=== PATIENT | male | born 1955 | race Caucasian/White ===

== ENCOUNTER 2020-07-30 00:53 | Emergency (ER) | payer MEDICAID ==
[~2020-07-30] VITALS: Ht 185.4 cm; Wt 113.4 kg
[2020-07-30 01:27] LABS: Basophils # (auto) 0.1 10 ^3/uL (0-0.2); Eosinophils # (auto) 0.1 10 ^3/uL (0-0.8); Eosinophils % (auto) 1.6 % (0.0-7.0); Hematocrit 44.5 % (41.0-53.0); Hemoglobin 15.3 g/dL (13.5-17.5); Lymphocytes # (auto) 2.1 10 ^3/uL (0.4-5.4); Lymphocytes % (auto) 33.1 % (10.0-50.0); Mean Corpuscular Hemoglobin 30.4 pg (28.0-32.0); Mean Corpuscular Hgb Conc. 34.4 g/dL (32.0-36.0); Mean Corpuscular Volume 88.5 fL (80.0-100.0); Monocytes # (auto) 0.6 10 ^3/uL (0-1.3); Monocytes % (auto) 8.9 % (0.0-12.0); Neutrophils # (auto) 3.5 10 ^3/uL (1.6-8.6); Neutrophils % (auto) 55.4 % (37.0-80.0); Nucleated Red Blood Cells % 0.1 %; Platelet Count (auto) 340 10^3/uL (140-450); Red Blood Cells 5.03 10^6/uL (4.5-5.90); Red Cell Distribution Width 13.9 % (11.8-14.3); White Blood Cell 6.4 10^3/uL (4.4-10.8)
[2020-07-30 01:37] LABS: Albumin 3.9 g/dL (3.4-5.0); BUN/Creatinine Ratio 15.2; Calcium 8.7 mg/dL (8.5-10.1); Potassium 3.3 mmol/L (3.5-5.1); Total Protein 7.5 g/dL (6.4-8.2)
[2020-07-30 05:00] VITALS: BP 151/81
== END 2020-07-30 05:24 | disposition home or self-care (01) ==
LOC: ER 01:01
DX: K40.20 Bilateral inguinal hernia, without obstruction or gangrene, not specified as recurrent (principal)
CPT/HCPCS: 36415; 74176; 80053; 83615; 85025

== ENCOUNTER 2023-06-25 09:28 | Inpatient (IN) | payer MEDICARE, MEDICAID ==
[~2023-06-25] VITALS: Ht 188 cm; Wt 101.1 kg
[2023-06-25 10:13] LABS: Basophils # (auto) 0.1 10 ^3/uL (0-0.2); Basophils % (auto) 0.6 % (0.0-2.0); Eosinophils # (auto) 0.1 10 ^3/uL (0-0.8); Eosinophils % (auto) 0.6 % (0.0-7.0); Hematocrit 49.4 % (41.0-53.0); Hemoglobin 16.4 g/dL (13.5-17.5); Lymphocytes # (auto) 1.7 10 ^3/uL (0.4-5.4); Lymphocytes % (auto) 18.3 % (10.0-50.0); Mean Corpuscular Hemoglobin 30.3 pg (28.0-32.0); Mean Corpuscular Hgb Conc. 33.3 g/dL (32.0-36.0); Monocytes # (auto) 0.8 10 ^3/uL (0-1.3); Monocytes % (auto) 9.1 % (0.0-12.0); Neutrophils # (auto) 6.6 10 ^3/uL (1.6-8.6); Neutrophils % (auto) 71.4 % (37.0-80.0); Nucleated Red Blood Cells % 0.2 %; Red Blood Cells 5.43 10^6/uL (4.5-5.90); Red Cell Distribution Width 13.7 % (11.8-14.3); White Blood Cell 9.2 10^3/uL (4.4-10.8)
[2023-06-25 10:16] LABS: Urine Bacteria NONE SEEN /hpf (None Seen); Urine Blood 3+ /uL (Negative); Urine Clarity CLOUDY (Clear); Urine Color Red (Yellow); Urine Protein, UAD 2+ (Negative); Urine Specific Gravity 1.015 (1.001-1.035); Urine Urobilinogen Normal (Negative); Urine WBC 512 /hpf (0 - 3); Urine pH 7.5 (5.0-8.0)
[2023-06-25 10:29] LABS: INR 1.02 (0.9-1.15); Partial Thromboplastin Time 29.6 SEC (24.5-34.5); Prothrombin Time 10.7 sec (9.3-11.8)
[2023-06-25 10:32] LABS: Alanine Aminotransferase 19 U/L (7-40); Albumin 4.6 g/dL (3.2-4.8); Alkaline Phosphatase 110 U/L (46-116); Anion Gap 6 (5-15); Aspartate Aminotransferase 19 U/L (13-40); BUN/Creatinine Ratio 7.5 (10.0-20.0); Bilirubin, Total 2.6 mg/dL (0.2-1.0); Blood Urea Nitrogen 7 mg/dL (9-23); Calcium 9.6 mg/dL (8.5-10.1); Carbon Dioxide 26 mmol/L (20-30); Chloride 106 mmol/L (98-107); Glucose 104 mg/dL (74-106); Potassium 3.7 mmol/L (3.5-5.1); Sodium 138 mmol/L (136-145)
[2023-06-25 10:33] LABS: Total Protein 7.6 g/dL (5.7-8.2)
[2023-06-25] MEDS ORDERED: CIPROFLOXACIN 400MG/200ML 200 ML IV ONE (11:00)
[2023-06-25] MEDS ORDERED: metroNIDAZOLE 500MG/100ML 100 ML IV ONE (11:00)
[2023-06-25] MEDS ORDERED: HYDROmorphone HCL 2 MG/ML VL/or syr IV PRN (11:15)
[2023-06-25] MEDS ORDERED: HYDROcodone-ACET 5/325MG TAB PO PRN (11:15)
[2023-06-25] MEDS ORDERED: ACETAMINOPHEN 325 MG TAB PO PRN (11:15)
[2023-06-25] MEDS ORDERED: DOCUSATE SOD 100 MG CAP PO PRN (11:15)
[2023-06-25] MEDS ORDERED: metroNIDAZOLE 500MG/100ML 100 ML IV SCH (11:15)
[2023-06-25] MEDS: SODIUM CHLOR 0.9% PF (SALINE LOCK) 10ML VIAL/SYR IV SCH ×2 (14:08→18:26)
[2023-06-25 16:00] VITALS: PULSE 80; RESP 16; O2SAT 98
[2023-06-25] MEDS: metroNIDAZOLE 500MG/100ML 100 ML IV SCH (18:26)
[2023-06-25 22:00] VITALS: BP 128/90; PULSE 79; RESP 16; TEMP 97.9; O2SAT 96
[2023-06-26] MEDS: metroNIDAZOLE 500MG/100ML 100 ML IV SCH ×3 (02:40→18:28)
[2023-06-26 05:00] VITALS: BP 116/73; PULSE 82; RESP 16; TEMP 98.4; O2SAT 98
[2023-06-26] MEDS: SODIUM CHLOR 0.9% PF (SALINE LOCK) 10ML VIAL/SYR IV SCH ×3 (05:50→22:00)
[2023-06-26 09:00] VITALS: BP 119/82; PULSE 81; RESP 20; TEMP 98.3; O2SAT 93
[2023-06-26] MEDS: cefTRIAXone 1GM/50ML D5W 50 ML IV SCH (11:13)
[2023-06-26 13:00] VITALS: BP 137/97; PULSE 70; RESP 20; TEMP 98.4; O2SAT 95
[2023-06-26 17:00] VITALS: BP 151/91; PULSE 78; RESP 18; TEMP 98.3; O2SAT 98
[2023-06-26 22:00] VITALS: BP 131/91; PULSE 77; RESP 18; TEMP 97.7; O2SAT 97
[2023-06-27] MEDS: metroNIDAZOLE 500MG/100ML 100 ML IV SCH ×3 (03:05→18:53)
[2023-06-27 05:00] VITALS: BP 152/96; PULSE 68; RESP 16; TEMP 97.6; O2SAT 96
[2023-06-27] MEDS: SODIUM CHLOR 0.9% PF (SALINE LOCK) 10ML VIAL/SYR IV SCH ×3 (05:50→21:21)
[2023-06-27] MEDS: ONDANSETRON HCL 4 MG/2 ML VIAL IV PRN (05:51)
[2023-06-27 09:00] VITALS: BP 155/99; PULSE 60; RESP 18; TEMP 98.1; O2SAT 96
[2023-06-27] MEDS: cefTRIAXone 1GM/50ML D5W 50 ML IV SCH (11:10)
[2023-06-27] MEDS ORDERED: cloNIDine HCL 0.1 MG TAB PO PRN (12:30)
[2023-06-27 13:00] VITALS: BP_SYST 140; BP_SYST 169; BP_DIAS 117; BP_DIAS 62; PULSE 100; PULSE 78; RESP 18; TEMP 98.1; TEMP 98.2; O2SAT 96; O2SAT 97
[2023-06-27 17:00] VITALS: BP 112/82; PULSE 74; RESP 18; TEMP 98.3; O2SAT 98
[2023-06-27 22:00] VITALS: BP_SYST 66; PULSE 71; RESP 17; TEMP 98.3; O2SAT 96
[2023-06-28] MEDS: metroNIDAZOLE 500MG/100ML 100 ML IV SCH ×2 (03:20→10:13)
[2023-06-28 05:00] VITALS: BP 115/82; PULSE 65; RESP 18; TEMP 98.2; O2SAT 98
[2023-06-28] MEDS: ONDANSETRON HCL 4 MG/2 ML VIAL IV PRN (05:50)
[2023-06-28] MEDS: SODIUM CHLOR 0.9% PF (SALINE LOCK) 10ML VIAL/SYR IV SCH ×2 (05:52→14:00)
[2023-06-28 09:00] VITALS: BP 125/85; PULSE 64; RESP 17; TEMP 97.6; O2SAT 96
[2023-06-28] MEDS: cefTRIAXone 1GM/50ML D5W 50 ML IV SCH (10:13)
[2023-06-28] MEDS ORDERED: BACDST PO (11:07)
[2023-06-28] MEDS ORDERED: METR-344 PO (11:07)
[2023-06-28 12:41] VITALS: BP 149/95; PULSE 75; RESP 17; TEMP 97.5; O2SAT 95
[2023-06-28 14:03] VITALS: BP 149/95; PULSE 75; TEMP 97.5
[2023-06-28 14:06] LABS: PSA Free 1.29 ng/mL
== END 2023-06-28 15:35 | disposition home or self-care (01) | DRG 872 ==
LOC: ER 09:28 → UNDOADMIN 11:14 → OVERFLOW 11:14 → EAST 17:41 → OVERFLOW 17:41 → EAST 19:01 → OVERFLOW 19:01
PROVIDERS: ADMIT Internal Medicine; ATTEND Family Medicine
DX: A41.01 Sepsis due to Methicillin susceptible Staphylococcus aureus (principal); N30.01 Acute cystitis with hematuria; K57.32 Diverticulitis of large intestine without perforation or abscess without bleeding; E86.0 Dehydration; N40.0 Benign prostatic hyperplasia without lower urinary tract symptoms; K43.9 Ventral hernia without obstruction or gangrene; Z80.42 Family history of malignant neoplasm of prostate; Z85.118 Personal history of other malignant neoplasm of bronchus and lung; Z87.891 Personal history of nicotine dependence; Z83.3 Family history of diabetes mellitus; Z80.1 Family history of malignant neoplasm of trachea, bronchus and lung
CPT/HCPCS: 36415; 74176; 76700; 80053; 81001; 83605; 84154; 85025; 85610; 85730; 87040; 87086; 87088; 87186; G0378; J2405; J3490

== ENCOUNTER → 2023-07-19 | Outpatient (CLI) | payer MEDICARE, MEDICAID ==
[~2023-07-19] MED LIST: BACDST PO; METR-344 PO
[2023-07-19 13:38] LABS: Urine Bacteria NONE SEEN /hpf (None Seen); Urine Blood Negative /uL (Negative); Urine Clarity Clear (Clear); Urine Color Yellow (Yellow); Urine Protein, UAD Negative (Negative); Urine Specific Gravity 1.021 (1.001-1.035); Urine Urobilinogen Normal (Negative); Urine WBC <1 /hpf (0 - 3); Urine pH 5.5 (5.0-8.0)
== END | disposition home or self-care (01) ==
LOC: LAB 13:20
PROVIDERS: ATTEND Urology
DX: N40.1 Benign prostatic hyperplasia with lower urinary tract symptoms (principal)
CPT/HCPCS: 81001; 87086

== ENCOUNTER 2023-07-28 10:54 | Emergency (ER) | payer MEDICARE, MEDICAID ==
[~2023-07-28] VITALS: Ht 188 cm; Wt 94.1 kg
[~2023-07-28 10:54] MED LIST changes: -LOSA25TA15 PO
[2023-07-28] MEDS ORDERED: LOSA25TA15 PO (11:50)
[2023-07-28 12:35] VITALS: BP 143/95; PULSE 69; RESP 18; O2SAT 95
== END 2023-07-28 12:38 | disposition home or self-care (01) ==
LOC: ER 10:54
DX: I16.0 Hypertensive urgency (principal); Z79.899 Other long term (current) drug therapy

== ENCOUNTER → 2023-07-28 | Outpatient (CLI) | payer MEDICARE, MEDICAID ==
[~2023-07-28] MED LIST changes: +LOSA25TA15 PO
== END | disposition home or self-care (01) ==
LOC: LAB 12:54
PROVIDERS: ATTEND Urology
DX: N40.1 Benign prostatic hyperplasia with lower urinary tract symptoms (principal)
CPT/HCPCS: 84153

== ENCOUNTER → 2023-08-18 | Outpatient (CLI) | payer MEDICARE, MEDICAID ==
[~2023-08-18] MED LIST changes: +LOSA25TA15 PO
[2023-08-18 07:44] LABS: Cholesterol 187 mg/dL (< 200); LDL Cholesterol 136 mg/dL (< 100); Triglycerides 65 mg/dL (< 150)
[2023-08-18 07:45] LABS: HDL Cholesterol 47 mg/dL (40-59)
== END | disposition home or self-care (01) ==
LOC: LAB 06:37
PROVIDERS: ATTEND Internal Medicine
DX: N40.1 Benign prostatic hyperplasia with lower urinary tract symptoms (principal); N39.0 Urinary tract infection, site not specified; Z79.899 Other long term (current) drug therapy
CPT/HCPCS: 36415; 80061; 83036; 84443

== ENCOUNTER → 2023-09-27 | Outpatient (CLI) | payer MEDICARE, MEDICAID ==
[~2023-09-27] MED LIST changes: +LOSA-533 PO; -LOSA25TA15 PO
[2023-09-27 07:07] LABS: Chloride 107 mmol/L (98-107); Potassium 3.9 mmol/L (3.5-5.1); Sodium 139 mmol/L (136-145)
[2023-09-27 07:08] LABS: Anion Gap 5 (5-15); Calcium 9.5 mg/dL (8.7-10.4); Carbon Dioxide 27 mmol/L (20-30)
[2023-09-27 07:13] LABS: BUN/Creatinine Ratio 13.8 (10.0-20.0); Blood Urea Nitrogen 13 mg/dL (9-23); Glucose 108 mg/dL (74-106)
[2023-09-27 07:37] LABS: Creatinine, Urine 202.26 mg/dL (30.0-125.0)
== END | disposition home or self-care (01) ==
LOC: LAB 06:39
PROVIDERS: ATTEND Internal Medicine
DX: Z12.11 Encounter for screening for malignant neoplasm of colon (principal); R73.03 Prediabetes; E78.5 Hyperlipidemia, unspecified
CPT/HCPCS: 36415; 80048; 82043; 82570

== ENCOUNTER 2023-10-04 06:37 | Day surgery (SDC) | payer MEDICARE, MEDICAID ==
[2023-09-30 08:45] LABS: Urine Bacteria None Seen /hpf (None Seen)
[2023-09-30 08:48] LABS: Basophils # (auto) 0 10 ^3/uL (0-0.2); Basophils % (auto) 0.7 % (0.0-2.0); Eosinophils # (auto) 0.1 10 ^3/uL (0-0.8); Hematocrit 45.6 % (41.0-53.0); Hemoglobin 15.4 g/dL (13.5-17.5); Lymphocytes # (auto) 1.5 10 ^3/uL (0.4-5.4); Lymphocytes % (auto) 32.1 % (10.0-50.0); Mean Corpuscular Hemoglobin 30.5 pg (28.0-32.0); Mean Corpuscular Hgb Conc. 33.9 g/dL (32.0-36.0); Monocytes # (auto) 0.5 10 ^3/uL (0-1.3); Neutrophils # (auto) 2.6 10 ^3/uL (1.6-8.6); Neutrophils % (auto) 54.2 % (37.0-80.0); Nucleated Red Blood Cells % 0.1 %; Red Blood Cells 5.07 10^6/uL (4.5-5.90); Red Cell Distribution Width 13.8 % (11.8-14.3); White Blood Cell 4.7 10^3/uL (4.4-10.8)
[2023-09-30 09:08] LABS: Partial Thromboplastin Time 27.1 SEC (24.5-34.5); Prothrombin Time 10.6 sec (9.3-11.8)
[2023-09-30 09:24] LABS: Alanine Aminotransferase 11 U/L (7-40); Albumin 4.5 g/dL (3.2-4.8); Alkaline Phosphatase 98 U/L (46-116); Anion Gap 5 (5-15); Aspartate Aminotransferase 18 U/L (13-40); BUN/Creatinine Ratio 12.2 (10.0-20.0); Blood Urea Nitrogen 12 mg/dL (9-23); Calcium 9.6 mg/dL (8.5-10.1); Carbon Dioxide 28 mmol/L (20-30); Chloride 107 mmol/L (98-107); Glucose 106 mg/dL (74-106); Potassium 4.3 mmol/L (3.5-5.1); Sodium 140 mmol/L (136-145)
[2023-09-30 09:25] LABS: Bilirubin, Total 1.8 mg/dL (0.2-1.0); Total Protein 7.3 g/dL (5.7-8.2)
[2023-09-30 09:31] LABS: Urine Blood TRACE /uL (Negative); Urine Clarity Clear (Clear); Urine Color Yellow (Yellow); Urine Mucus FEW (None Seen); Urine Protein, UAD Negative (Negative); Urine Specific Gravity 1.024 (1.001-1.035); Urine Urobilinogen Normal (Negative); Urine WBC 1 /hpf (0 - 3); Urine pH 5.5 (5.0-9.0)
[~2023-10-04] VITALS: Ht 188 cm; Wt 90.7 kg
[~2023-10-04 06:37] MED LIST changes: -BACDST PO; -METR-344 PO
[2023-10-04] MEDS ORDERED: PHENYLEPHRINE HCL 10 MG/ML VL IV ONE (08:55)
[2023-10-04] MEDS ORDERED: MIDAZOLAM HCL 2MG/2ML 2ml VIAL (1mg/ml) ONE (08:58)
[2023-10-04] MEDS ORDERED: fentaNYL CITRATE 100 MCG/2 ML VL ONE (08:58)
[2023-10-04] MEDS ORDERED: MEPERIDINE HCL (50 MG/ML) 1 ML VIAL ONE (08:58)
[2023-10-04] MEDS ORDERED: LIDOCAINE 2% JELLY 11ml (GLYDO) ONE (09:08)
[2023-10-04] MEDS ORDERED: ETOMIDATE (2MG/ML) 20ML VIAL IV ONE (09:25)
[2023-10-04] MEDS ORDERED: DexAMETHasone SOD PHOS 10MG/1ML VIAL INJ ONE (09:25)
[2023-10-04] MEDS ORDERED: ONDANSETRON HCL 4 MG/2 ML VIAL IV ONE (09:30)
[2023-10-04] MEDS ORDERED: LABETALOL HCL 5 MG/ML 4ML SYRINGE IV PRN (09:30)
[2023-10-04] MEDS ORDERED: HYDROmorphone HCL 2 MG/ML VL/or syr IV PRN (09:30)
[2023-10-04] MEDS ORDERED: MORPHINE SULFATE 4 MG/ML SYR/VIAL IV PRN (09:30)
[2023-10-04] MEDS ORDERED: MIDAZOLAM HCL 2MG/2ML 2ml VIAL (1mg/ml) IV PRN (09:30)
[2023-10-04] MEDS ORDERED: ePHEDrine SULFATE 50 MG/ML AMP IV PRN (09:30)
[2023-10-04 09:54] VITALS: TEMP 97.8; O2SAT 96
[2023-10-04 10:50] VITALS: BP 128/86; PULSE 79; RESP 13; O2SAT 99
== END 2023-10-04 11:00 | disposition home or self-care (01) ==
LOC: SUR 06:37
PROVIDERS: ATTEND Urology
DX: N40.1 Benign prostatic hyperplasia with lower urinary tract symptoms (principal); N32.89 Other specified disorders of bladder; N30.20 Other chronic cystitis without hematuria; I10 Essential (primary) hypertension; I25.10 Atherosclerotic heart disease of native coronary artery without angina pectoris; F32.A Depression, unspecified; F41.9 Anxiety disorder, unspecified; F11.90 Opioid use, unspecified, uncomplicated; F17.210 Nicotine dependence, cigarettes, uncomplicated; Z79.899 Other long term (current) drug therapy; Z98.890 Other specified postprocedural states
CPT/HCPCS: 36415; 52234; 80053; 81001; 85025; 85610; 85730; 87086; 88305; 88342; C9740; J1100; J2175; J2250; J2371; J3010; L8699

== ENCOUNTER → 2023-11-09 | Day surgery (SDC) | payer MEDICARE, MEDICAID ==
[2023-11-08 08:05] LABS: Basophils # (auto) 0 10 ^3/uL (0-0.2); Basophils % (auto) 0.8 % (0.0-2.0); Eosinophils # (auto) 0.1 10 ^3/uL (0-0.8); Eosinophils % (auto) 2.3 % (0.0-7.0); Hemoglobin 15.6 g/dL (13.5-17.5); Lymphocytes # (auto) 1.7 10 ^3/uL (0.4-5.4); Lymphocytes % (auto) 38.9 % (10.0-50.0); Mean Corpuscular Hemoglobin 31.6 pg (28.0-32.0); Mean Corpuscular Hgb Conc. 34.7 g/dL (32.0-36.0); Mean Corpuscular Volume 90.9 fL (80.0-100.0); Monocytes # (auto) 0.4 10 ^3/uL (0-1.3); Monocytes % (auto) 10.1 % (0.0-12.0); Neutrophils % (auto) 47.9 % (37.0-80.0); Nucleated Red Blood Cells % 0.1 %; Red Blood Cells 4.95 10^6/uL (4.5-5.90); Red Cell Distribution Width 13.7 % (11.8-14.3); White Blood Cell 4.3 10^3/uL (4.4-10.8)
[2023-11-08 08:17] LABS: Urine Bacteria FEW /hpf (None Seen); Urine Blood TRACE /uL (Negative); Urine Budding Yeast OCCASIONAL /hpf (None Seen); Urine Clarity Clear (Clear); Urine Color Yellow (Yellow); Urine Mucus FEW (None Seen); Urine Protein, UAD TRACE (Negative); Urine Specific Gravity 1.021 (1.001-1.035); Urine Urobilinogen Normal (Negative); Urine WBC 50 /hpf (0 - 3); Urine pH 6.5 (5.0-9.0)
[2023-11-08 08:19] LABS: INR 1.03 (0.9-1.15); Partial Thromboplastin Time 27.9 SEC (24.5-34.5); Prothrombin Time 10.9 sec (9.3-11.8)
[2023-11-08 08:31] LABS: Alanine Aminotransferase 11 U/L (7-40); Alkaline Phosphatase 95 U/L (46-116); Calcium 9.3 mg/dL (8.5-10.1); Carbon Dioxide 27 mmol/L (20-30); Chloride 110 mmol/L (98-107)
[2023-11-08 08:32] LABS: Albumin 4.4 g/dL (3.2-4.8); Anion Gap 5 (5-15); Aspartate Aminotransferase 11 U/L (13-40); BUN/Creatinine Ratio 10.9 (10.0-20.0); Bilirubin, Total 2.4 mg/dL (0.2-1.0); Blood Urea Nitrogen 10 mg/dL (9-23); Glucose 108 mg/dL (74-106); Potassium 3.7 mmol/L (3.5-5.1); Sodium 142 mmol/L (136-145)
[~2023-11-09] VITALS: Ht 188 cm; Wt 90.7 kg
[~2023-11-09] MED LIST changes: +ACE3T PO; +BUPIVACAINE HCL 50 ML ONE; +DexAMETHasone SOD PHOS 10MG/1ML VIAL INJ ONE; +HYDROmorphone HCL 2 MG/ML VL/or syr IV PRN; +KETAMINE 50mg/ML 1ml syringe ONE; +KETOROLAC TROMETH 30 MG/ML 1ML VIAL IV ONE; +LIDOCAINE 1% INJ PF 5ML AMP ONE; +LIDOCAINE 2% JELLY 11ml (GLYDO) ONE; +LIDOCAINE HCL 2% TOP JELLY 5ML TOP ONE; +LIDOCAINE W/ EPINEPHRINE 1% 20ML VIAL ONE; +MEPERIDINE HCL (50 MG/ML) 1 ML VIAL ONE; +METOCLOPRAMIDE HCL 5MG/ml INJ 2ml VIAL IV ONE; +MIDAZOLAM HCL 2MG/2ML 2ml VIAL (1mg/ml) ONE; +MORPHINE SULFATE INJ 2 MG/ml SYRG IV PRN; +PROPOFOL 10 MG/ML 20 ML IV ONE; +ROCURONIUM 10MG/ML 10ML VIAL IV ONE; +SODIUM CHLORIDE LOCK 10 ML ONE; +SUCCINYLCHOLINE CHLORIDE 20 MG/ML 10ML VIAL IV ONE; +ceFAZolin 2 GM/D5W50ml 50 ML IV ONE; +fentaNYL CITRATE 100 MCG/2 ML VL IV PRN; +fentaNYL CITRATE 100 MCG/2 ML VL ONE
[2023-11-09 08:29] VITALS: TEMP 97; O2SAT 98
[2023-11-09 09:40] VITALS: BP 152/100; PULSE 56; RESP 11; O2SAT 99
== END | disposition home or self-care (01) ==
LOC: SUR 06:06
PROVIDERS: ATTEND Surgery
DX: K40.91 Unilateral inguinal hernia, without obstruction or gangrene, recurrent (principal); I10 Essential (primary) hypertension; F12.90 Cannabis use, unspecified, uncomplicated; Z79.899 Other long term (current) drug therapy; Z98.890 Other specified postprocedural states
CPT/HCPCS: 36415; 49520; 80053; 81001; 85025; 85610; 85730; 86850; 86900; 86901; 88302; J0330; J0690; J1100; J2175; J2250; J2704; J3010; J3490

== ENCOUNTER → 2023-11-21 | Outpatient (CLI) | payer MEDICARE, MEDICAID ==
[~2023-11-21] MED LIST changes: -BUPIVACAINE HCL 50 ML ONE; -DexAMETHasone SOD PHOS 10MG/1ML VIAL INJ ONE; -HYDROmorphone HCL 2 MG/ML VL/or syr IV PRN; -KETAMINE 50mg/ML 1ml syringe ONE; -KETOROLAC TROMETH 30 MG/ML 1ML VIAL IV ONE; -LIDOCAINE 1% INJ PF 5ML AMP ONE; -LIDOCAINE 2% JELLY 11ml (GLYDO) ONE; -LIDOCAINE HCL 2% TOP JELLY 5ML TOP ONE; -LIDOCAINE W/ EPINEPHRINE 1% 20ML VIAL ONE; -MEPERIDINE HCL (50 MG/ML) 1 ML VIAL ONE; -METOCLOPRAMIDE HCL 5MG/ml INJ 2ml VIAL IV ONE; -MIDAZOLAM HCL 2MG/2ML 2ml VIAL (1mg/ml) ONE; -MORPHINE SULFATE INJ 2 MG/ml SYRG IV PRN; -PROPOFOL 10 MG/ML 20 ML IV ONE; -ROCURONIUM 10MG/ML 10ML VIAL IV ONE; -SODIUM CHLORIDE LOCK 10 ML ONE; -SUCCINYLCHOLINE CHLORIDE 20 MG/ML 10ML VIAL IV ONE; -ceFAZolin 2 GM/D5W50ml 50 ML IV ONE; -fentaNYL CITRATE 100 MCG/2 ML VL IV PRN; -fentaNYL CITRATE 100 MCG/2 ML VL ONE
[2023-11-21 07:48] LABS: Cholesterol 176 mg/dL (< 200); HDL Cholesterol 48 mg/dL (40-59)
[2023-11-21 07:49] LABS: Triglycerides 63 mg/dL (< 150)
[2023-11-21 07:50] LABS: LDL Cholesterol 121 mg/dL (< 100)
== END | disposition home or self-care (01) ==
LOC: LAB 06:53
PROVIDERS: ATTEND Internal Medicine
DX: R73.03 Prediabetes (principal); E78.5 Hyperlipidemia, unspecified
CPT/HCPCS: 36415; 80061; 83036

== ENCOUNTER → 2024-03-13 | Outpatient (CLI) | payer MEDICARE, MEDICAID ==
[2024-03-13 07:51] LABS: LDL Cholesterol 112 mg/dL (< 100); Triglycerides 81 mg/dL (< 150)
[2024-03-13 07:53] LABS: Cholesterol 174 mg/dL (< 200); HDL Cholesterol 52 mg/dL (40-59)
== END | disposition home or self-care (01) ==
LOC: LAB 07:07
PROVIDERS: ATTEND Internal Medicine
DX: E78.5 Hyperlipidemia, unspecified (principal); R73.03 Prediabetes; Z79.899 Other long term (current) drug therapy
CPT/HCPCS: 36415; 80061; 82306; 82607; 83036

== ENCOUNTER → 2024-05-08 | Outpatient (CLI) | payer MEDICARE, MEDICAID | END | disposition home or self-care (01) | LOC: LAB 09:52 | PROVIDERS: ATTEND Urology | DX: R97.20 Elevated prostate specific antigen [PSA] (principal) | CPT/HCPCS: 84153 ==

== ENCOUNTER → 2024-06-12 | Outpatient (CLI) | payer MEDICARE, MEDICAID ==
[2024-06-12 11:10] LABS: Basophils # (auto) 0 10 ^3/uL (0-0.2); Basophils % (auto) 0.7 % (0.0-2.0); Eosinophils # (auto) 0.1 10 ^3/uL (0-0.8); Eosinophils % (auto) 1.6 % (0.0-7.0); Hematocrit 46.3 % (41.0-53.0); Hemoglobin 15.5 g/dL (13.5-17.5); Lymphocytes # (auto) 1.2 10 ^3/uL (0.4-5.4); Lymphocytes % (auto) 29.8 % (10.0-50.0); Mean Corpuscular Hemoglobin 30.3 pg (28.0-32.0); Mean Corpuscular Hgb Conc. 33.5 g/dL (32.0-36.0); Mean Corpuscular Volume 90.4 fL (80.0-100.0); Monocytes # (auto) 0.4 10 ^3/uL (0-1.3); Monocytes % (auto) 10.2 % (0.0-12.0); Neutrophils # (auto) 2.4 10 ^3/uL (1.6-8.6); Neutrophils % (auto) 57.7 % (37.0-80.0); Nucleated Red Blood Cells % 0.2 %; Platelet Count (auto) 254 10^3/uL (140-450); Red Blood Cells 5.12 10^6/uL (4.5-5.90); Red Cell Distribution Width 13.9 % (11.8-14.3); White Blood Cell 4.2 10^3/uL (4.4-10.8)
[2024-06-12 11:42] LABS: Prostate Specific Antigen 2.66 ng/mL (0.0-4.0)
[2024-06-12 11:48] LABS: Triglycerides 54 mg/dL (< 150)
[2024-06-12 11:50] LABS: Cholesterol 170 mg/dL (< 200)
[2024-06-12 12:06] LABS: HDL Cholesterol 62 mg/dL (40-59); LDL Cholesterol 106 mg/dL (< 100)
== END | disposition home or self-care (01) ==
LOC: LAB 10:37
PROVIDERS: ATTEND Internal Medicine
DX: N40.0 Benign prostatic hyperplasia without lower urinary tract symptoms (principal); R73.03 Prediabetes; E72.59 Other disorders of glycine metabolism; Z79.899 Other long term (current) drug therapy
CPT/HCPCS: 36415; 80061; 82306; 82607; 84153; 85025

== ENCOUNTER 2024-06-26 16:25 | Emergency (ER) | payer MEDICARE, MEDICAID ==
[~2024-06-26] VITALS: Ht 188 cm; Wt 120.0 kg
[2024-06-26 16:35] VITALS: BP 145/105; PULSE 98; RESP 14; O2SAT 92
--- NOTE | 2024-06-26 17:19 | ED.PDOC ---
Back pain HPI HPI Comments 68y M who presents to the ED for chief complaint of back pain. Pt states she has been having back pain since earlier this AM after mechanical fall. Pt staes he slipped on ice while visiting his mothers home and states he fell on his back. Pt states he did not lose consciousness and denies hitting his head but states he fell on his lower back. Pt states he has since been having lower back and states he was trying to deal with the pain, and tried laying on his back on his bed and states he had some relief while laying on his L side but states he continued to be uncomfortable and came to the ED for further evaluation. Pt in the ED, rates the pain 10/10, constant, with no noted exacerbating or relieving factors. Pt states he is having associated pain and numbness to the bilateral hands. Pt states he has history of back pain from a workers comp injury in 1989. Pt otherwise denies any other symptoms at this time. Chief Complaint: Back Pain Time Seen by MD: 17:16 Primary Care Provider: MYKE Reviewed Notes: Nurses Notes, Medications Allergies: Coded Allergies: NO KNOWN ALLERGIES (Unverified , 07/30/20) Home Meds Active Scripts Gabapentin (Once-Daily) (Gabapentin) 300 Mg Tab, 300 MG PO Q6HP PRN for 10 Days, #40 TAB Prov:CORTEZ FAN MD 06/26/24 Acetaminophen W/ Codeine (Tylenol W/Cod #3) 1 Tab Tb, 1 TAB PO Q6HPRN PRN, #50 TAB Prov:CHRIS BEE NP 11/09/23 Losartan Potassium (Losartan Potassium) 25 Mg Tab, 1 TAB PO DAILY, #30 TAB 5 Refills Prov:PATRICIO ESQUIVEL MD 07/28/23 Information Source: Patient, Relative Mode of Arrival: Wheelchair Brought in by: daughter Timing: Hours Duration: Since onset Past Medical History Past Medical History (Other): chronic back pain Surgical History: Hernia Repair Family History Family History: Reviewed,noncontributory to illness Social History Smoker: Non-Smoker Alcohol: Denies ETOH Use Drugs: Marijuana Lives In: Home Constitutional: denies: chills, diaphoresis, fatigue, fever, malaise, sweats, weakness, others EENTM: denies: blurred vision, double vision, ear bleeding, ear discharge, ear drainage, ear pain, ear ringing, eye pain, eye redness, hearing loss, mouth pain, mouth swelling, nasal discharge, nose bleeding, nose congestion, nose pain, photophobia, tearing, throat pain, throat swelling, voice changes, others Respiratory: denies: cough, hemoptysis, orthopnea, SOB at rest, shortness of breath, SOB with excertion, stridor, wheezing, others Cardiovascular: denies: chest pain, dizzy spells, diaphoresis, Dyspnea on exertion, edema, irregular heart beat, left arm pain, lightheadedness, pa lpitations, PND, syncope, others Gastrointestinal: denies: abdomen distended, abdominal pain, blood streaked bowels, constipated, diarrhea, dysphagia, difficulty swallowing, hematemesis, melena, nausea, poor appetite, poor fluid intake, rectal bleeding, rectal pain, vomiting, others Genitourinary: denies: burning, dysuria, flank pain, frequency, hematuria, incontinence, penile discharge, penile sore, pain, testicle pain, testicle swelling, urgency, others Neurological: denies: dizziness, fainting, headache, left sided numbness, left sided weakness, numbness, paresthesia, pre-existing deficit, right sided numbness, right sided weakness, seizure, speech problems, tingling, tremors, weakness, others Musculoskeletal: reports: back pain; denies: gout, joint pain, joint swelling, muscle pain, muscle stiffness, neck pain, others Integumetry: denies: bruises, change in color, change in hair/nails, dryness, laceration, lesions, lumps, rash, wounds, others Allergic/Immunocompromised: denies: Difficulty Healing, Frequent Infections, Hives, Itching, others Hematologic/Lymphatic: denies: anemia, blood clots, easy bleeding, easy bruising, swollen glands, others Endocrine: denies: excessive hunger, excessive sweating, excessive thirst, excessive urination, flushing, intolerance to cold, intolerance to heat, unexplained weight gain, unexplained weight loss, others Psychiatric: denies: anxiety, bipolar disorder, depression, hopeless, panic disorder, schizophrenia, sleepless, suicidal, others All Other Systems: Reviewed and Negative Physical Exam General Appearance: Moderate Distress, Normal HEENT: Normal ENT Inspection, Pharynx Normal, TMs Normal Neck: Full Range of Motion, Non-Tender, Normal, Normal Inspection Respiratory: Chest Non-Tender, Lungs Clear, No Accessory Muscle Use, No Respiratory Distress, Normal Breath Sounds Cardiovascular: No Edema, No JVD, No Murmur, No Gallop, Normal Peripheral Pulses, Regular Rate/Rhythm Breast Exam: Deferred Gastrointestinal: No Organomegaly, Non Tender, No Pulsatile Mass, Normal Bowel Sounds, Soft Genitalia: Deferred Pelvic: Deferred Rectal: Deferred Extremities: No calf tenderness, Normal capillary refill, Normal inspection, Normal range of motion, Non-tender, No pedal edema Musculoskeletal : Location: Bilateral (tenderness lumbar paraspinal, no deformity, NVID) Apperance: Normal Neurologic: Alert, [place] II-XII nml as Tested, No Motor Deficits, Normal Affect, Normal Mood, No Sensory Deficits Cerebellar Function: Normal Reflexes: Normal Skin: Dry, Normal Color, Warm Lymphatic: No Adenopathy Was a procedure done? Was a procedure done?: No Back Pain Differential Dx Differential Diagnosis: Musculoskeletal Pain Other Differential Diagnosis fracture, dislocation, contusion, DJD, lumbar radiculopathy X-Ray, Labs, Meds, VS Vital Signs Date Time Temp Pulse Resp B/P (MAP) Pulse Ox O2 Delivery O2 Flow Rate FiO2 06/26/24 16:35 97.7 98 14 145/105 (118) 92 Current Medications Medications (Trade) Dose Ordered Sig/Elva Route Start Time Stop Time Status Last Admin Acetaminophen/ Hydrocodone Bitart ([place] 10/325MG Tab) 1 tab ONCE ONCE PO 06/26/24 17:00 06/26/24 17:01 DC 06/26/24 17:38 Ondansetron HCl (Zofran Po) 8 mg ONCE ONCE PO 06/26/24 17:00 06/26/24 17:01 DC 06/26/24 17:35 [place] [id number] Ph: [phone] DIAGNOSTIC IMAGING Diagnostic Imaging Report : [id number] Signed PATIENT: MARIA M CROOK ACCT: [id number] UNIT: [id number] : 1955 LOC: ER ROOM / BED: / AGE / SEX: 68 / M ADM STATUS: REG ER SERVICE [id number] ORDERING PHYSICIAN: EVELINA MCDANIEL DO PROCEDURE(s): ABPL - CT AB PEL WO CON-NO ORAL OR IV REASON: fall, low back pain ORDER NUMBER(s): [id number], ACCESSION NUMBER(s): [id number] Procedure: CT CT AB PEL WO CON-NO ORAL OR IV 06/26/2024 04:50 PM Indication: fall, low back pain Comparison Study: None available at time of dictation. Technique: Axial images were obtained and reformatted in coronal and sagittal planes. All CT scans at this medical facility are performed using dose modulation techniques as appropriate to a performed exam including the following: Automated exposure control was utilized; adjustment of the MA and/or KV according to patient size; and use of iterative reconstruction technique. CT Dose: CTDI volume is 11.44 mGy. Dose-length product is 622.08 mGy*cm FINDINGS: Lower Chest: Unremarkable. Hepatobiliary: Several stable hypodense hepatic lesions are seen which are most probably cysts Spleen: Unremarkable. Pancreas: Unremarkable. Adrenal Glands: Unremarkable. tract: The kidneys are normal in size bilaterally without hydronephrosis or nephrolithiasis. The urinary bladder is unremarkable. GI tract: The stomach is grossly normal in appearance. No evidence of small bowel obstruction. The large bowel is unremarkable. The appendix is not v isualized. No inflammatory change is noted in the right lower quadrant. Lymphatics: No mesenteric, retroperitoneal or periportal lymphadenopathy. Vasculature: Aorta is normal in caliber. Scattered calcified plaques are noted. Pelvic Organs: Prostate is moderately enlarged. Few subcentimeter densities are seen in the anterior aspect of the prostate that may be calcifications or brachytherapy seeds. Bones/soft tissues: Acute fracture of L1 with a horizontal lucent fracture in the anterior half and with depression of the superior endplates resulting in 30% loss of height. [address]able mild chronic anterior comp ression deformities of several lower thoracic vertebrae noted. Other: Stable nonspecific mild mesenteric fat stranding along the superior mesenteric axis noted. Small fat containing right inguinal hernia with interval improvement and suggestion of interval mesh herniorrhaphy. IMPRESSION: 1. Acute fracture of L1 likely burst fracture with 30% loss of height anteriorly and 2 mm retropulsion. ATED BY: AISHA SCHNEIDER MD DICTATED DATE/TIME: 06/26/241751 SIGNED BY: AISHA SCHNEIDER MD SIGNED DATE/TIME: 06/26/241751 CC: Time of 1ST Reevaluation: 17:45 Reevaluation 1ST: Unchanged Time of 2ND Reevaluation: 19:00 Reevaluation 2ND: Improved Patient Education/Counseling: Diagnosis, Treatment Family Education/Counseling: No Family Present Departure 1 Departure Time of Disposition: 19:00 Impression: Primary Impression: Closed burst fracture of lumbar vertebra Disposition: HOME / SELF CARE / HOMELESS Condition: Stable e-Prescriptions Gabapentin (Once-Daily) (Gabapentin) 300 Mg Tab 300 MG PO Q6HP PRN for 10 Days, #40 TAB Prov: CORTEZ FAN MD 06/26/24 Discharged With: Self Critical Care Note Critical Care Time?: No Stability Stability form required: No Heart Score Heart Score: Heart Score Response (Comments) Value History N/A 0 EKG N/A 0 Age N/A 0 Risk Factors N/A 0 Troponin N/A 0 Total 0 I personally scribed for CORTEZ FAN MD ([email or web address]) on 06/26/24 at 17:19. Electronically submitted by Quintin Reynolds ([email or web address]). I personally scribed for CORTEZ FAN MD ([email or web address]) on 06/26/24 at 18:03. Electronically submitted by Quintin Reynolds ([email or web address]). CORTEZ FAN MD Jun 26, 2024 17:19
[2024-06-26] MEDS: ONDANSETRON ODT 4 MG TAB PO ONE (17:35)
[2024-06-26] MEDS: HYDROcodone-ACET 10/325MG TAB PO ONE (17:38)
--- NOTE | 2024-06-26 17:54 | DVH ---
Procedure: CT CT AB PEL WO CON-NO ORAL OR IV 06/26/2024 04:50 PM Indication: fall, low back pain Comparison Study: None available at time of dictation. Technique: Axial images were obtained and reformatted in coronal and sagittal planes. All CT scans at this medical facility are performed using dose modulation techniques as appropriate t o a performed exam including the following: Automated exposure control was utilized; adjustment of th e MA and/or KV according to patient size; and use of iterative reconstruction technique. CT Dose: CTDI volume is 11.44 mGy. Dose-length product is 622.08 mGy*cm FINDINGS: Lower Chest: Unremarkable. Hepatobiliary: Several stable hypodense hepatic lesions are seen which are most probably cysts Spleen: Unremarkable. Pancreas: Unremarkable. Adrenal Glands: Unremarkable. tract: The kidneys are normal in size bilaterally without hydronephrosis or nephrolithiasis. The urinary bladder is unremarkable. GI tract: The stomach is grossly normal in appearance. No evidence of small bowel obstruction. The la rge bowel is unremarkable. The appendix is not visualized. No inflammatory change is noted in the ri ght lower quadrant. Lymphatics: No mesenteric, retroperitoneal or periportal lymphadenopathy. Vasculature: Aorta is normal in caliber. Scattered calcified plaques are noted. Pelvic Organs: Prostate is moderately enlarged. Few subcentimeter densities are seen in the anterior aspect of the prostate that may be calcifications or brachytherapy seeds. Bones/soft tissues: Acute fracture of L1 with a horizontal lucent fracture in the anterior half and w ith depression of the superior endplates resulting in 30% loss of height. [address] able mild chronic anterior compression deformities of several lower thoracic vertebrae noted. Other: Stable nonspecific mild mesenteric fat stranding along the superior mesenteric axis noted. Sma ll fat containing right inguinal hernia with interval improvement and suggestion of interval mesh her niorrhaphy. IMPRESSION: 1. Acute fracture of L1 likely burst fracture with 30% loss of height anteriorly and 2 mm retropulsio n.
[2024-06-26] MEDS ORDERED: GABA300T4 PO (18:54)
== END 2024-06-26 21:16 | disposition home or self-care (01) ==
LOC: ER 16:29
DX: S32.011A Stable burst fracture of first lumbar vertebra, initial encounter for closed fracture (principal); F12.90 Cannabis use, unspecified, uncomplicated; Z79.899 Other long term (current) drug therapy; Z98.890 Other specified postprocedural states; W00.2XXA Other fall from one level to another due to ice and snow, initial encounter; Y93.89 Activity, other specified; Y92.89 Other specified places as the place of occurrence of the external cause; Y99.8 Other external cause status
CPT/HCPCS: 74176; 99284; Q0162

== ENCOUNTER 2024-06-29 21:46 | Inpatient (IN) | payer MEDICARE, MEDICAID ==
[~2024-06-29] VITALS: Ht 188 cm; Wt 88.4 kg
[~2024-06-29 21:46] MED LIST changes: +GABA300T4 PO
--- NOTE | 2024-06-29 22:20 | ED.PDOC ---
Back pain HPI HPI Comments 68 y.o male presents to the ED for a chief complaint of mid lower back and pelvis pain s/p mechanical fall 3 days ago. Patient reports he tripped and fell onto his buttocks and was unable to get himself back up without assistance of his family. Patient was brought to the ED then, had images done and showed CT showed " Acute fracture of L1 likely burst fracture with 30% loss of height anteriorly and 2 mm retropulsion". Patient was discharged with Gabapentin and [place] but states he is unable to keep medication down due to new onset nausea and vomiting. Patient attempted to follow up with PCP but was told his pain is chronic and was unable to be seen then. He denies any head injuries or LOC during his fall. He also denies any numbness sensation to his lower extremities. Patient states the pain has been unrelenting and is unable to manage it at home. Time Seen by MD: 22:10 Primary Care Provider: MYKE Reviewed Notes: Nurses Notes, Medications, Allergies Allergies: Coded Allergies: NO KNOWN ALLERGIES (Unverified , 07/30/20) Home Meds Active Scripts Gabapentin (Once-Daily) (Gabapentin) 300 Mg Tab, 300 MG PO Q6HP PRN for 20 Days, #80 TAB Prov:CORTEZ FAN MD 06/26/24 Gabapentin (Once-Daily) (Gabapentin) 300 Mg Tab, 300 MG PO Q6HP PRN for 10 Days, #40 TAB Prov:CORTEZ FAN MD 06/26/24 Acetaminophen W/ Codeine (Tylenol W/Cod #3) 1 Tab Tb, 1 TAB PO Q6HPRN PRN, #50 TAB Prov:CHRIS BEE NP 11/09/23 Losartan Potassium (Losartan Potassium) 25 Mg Tab, 1 TAB PO DAILY, #30 TAB 5 Refills Prov:PATRICIO ESQUIVEL MD 07/28/23 Information Source: Patient Mode of Arrival: Wheelchair Timing: Days (3) Duration: Since onset Location of Back pain: (B) Lower back, (B) Lumbar Severity: Severe Quality: Sharp Onset: Fall Circumstance: Other History of: Other (recent fracture ) Modifying Factors: Nothing; No Movement, No Twisting, No Breathing, No Walking, No Other Associated signs and symptoms: Nausea, Vomiting Past Medical History PAST MEDICAL HISTORY: Denies Past Medical History (Other): Recent history of L1 burst fracture. Surgical History: Hernia Repair Family History Family History: Reviewed,noncontributory to illness Social History Smoker: Non-Smoker Alcohol: Denies ETOH Use Drugs: Marijuana Lives In: Home Constitutional: denies: chills, diaphoresis, fatigue, fever, malaise, sweats, weakness, others EENTM: denies: blurred vision, double vision, ear bleeding, ear discharge, ear drainage, ear pain, ear ringing, eye pain, eye redness, hearing loss, mouth pain, mouth swelling, nasal discharge, nose bleeding, nose congestion, nose pain, photophobia, tearing, throat pain, throat swelling, voice changes, others Respiratory: denies: cough, hemoptysis, orthopnea, SOB at rest, shortness of breath, SOB with excertion, stridor, wheezing, others Cardiovascular: denies: chest pain, dizzy spells, diaphoresis, Dyspnea on exertion, edema, irregular heart beat, left arm pain, lightheadedness, palpitations, PND, syncope, others Gastrointestinal: reports: nausea; denies: abdomen distended, abdominal pain, blood streaked bowels, constipated, diarrhea, dysphagia, difficulty swallowing, hematemesis, melena, poor appetite, poor fluid intake, rectal bleeding, rectal pain, vomiting, others Genitourinary: denies: burning, dysuria, flank pain, frequency, hematuria, incontinence, penile discharge, penile sore, pain, testicle pain, testicle swelling, urgency, others Neurological: denies: dizziness, fainting, headache, left sided numbness, left sided weakness, numbness, paresthesia, pre-existing deficit, right sided numbness, right sided weakness, seizure, speech problems, tingling, tremors, weakness, others Musculoskeletal: reports: back pain, others (pelvis pain ); denies: gout, joint pain, joint swelling, muscle pain, muscle stiffness, neck pain Hematologic/Lymphatic: denies: anemia, blood clots, easy bleeding, easy bruising, swollen glands, others Endocrine: denies: excessive hunger, excessive sweating, excessive thirst, excessive urination, flushing, intolerance to cold, intolerance to heat, unexplained weight gain, unexplained weight loss, others Psychiatric: denies: anxiety, bipolar disorder, depression, hopeless, panic disorder, schizophrenia, sleepless, suicidal, others All Other Systems: Reviewed and Negative Physical Exam General Appearance: Moderate Distress (Patient is a moderate distress due to low back pain concerns.) HEENT: Normal ENT Inspection, Pharynx Normal, TMs Normal Neck: Full Range of Motion, Non-Tender, Normal, Normal Inspection Respiratory: Chest Non-Tender, Lungs Clear, No Accessory Muscle Use, No Respiratory Distress, Normal Breath Sounds Cardiovascular: No Edema, No JVD, No Murmur, No Gallop, Normal Peripheral Pulses, Regular Rate/Rhythm Breast Exam: Deferred Gastrointestinal: No Organomegaly, Non Tender, No Pulsatile Mass, Normal Bowel Sounds, Soft Genitalia: Deferred Pelvic: Deferred Rectal: Deferred Extremities: Swelling, Tender Musculoskeletal : Location: Bilateral Extremity Location: Back (Diffuse bilateral lower lumbar tenderness to palpation throughout extending towards the coccyx region. [id number] hypertonicity appreciated. Distal neurovascularly intact. Patient denies any s addle paresthesia.) Apperance: Limited ROM, Tenderness: Moderate Neurologic: Alert, No Motor Deficits, Normal Affect, Normal Mood, No Sensory Deficits Cerebellar Function: Normal Reflexes: Normal Skin: Dry, Normal Color, Warm Lymphatic: No Adenopathy Was a procedure done? Was a procedure done?: No Back Pain Differential Dx Differential Diagnosis: Fracture, Musculoskeletal Pain, Other (Chronic low back pain) X-Ray, Labs, Meds, VS Vital Signs Date Time Temp Pulse Resp B/P (MAP) Pulse Ox O2 Delivery O2 Flow Rate FiO2 06/29/24 22:08 98.3 87 20 154/99 (117) 98 Lab Test 06/29/24 22:25 Range/Units White Blood Count 7.3 4.4-10.8 10^3/uL Red Blood Count 5.36 4.5-5.90 10^6/uL Hemoglobin 16.4 13.5-17.5 g/dL Hematocrit 47.7 41.0-53.0 % Mean Corpuscular Volume 89.0 80.0-100.0 fL Mean Corpuscular Hemoglobin 30.7 28.0-32.0 pg Mean Corpuscular Hemoglobin Concent 34.5 32.0-36.0 g/dL Red Cell Distribution Width 13.7 11.8-14.3 % Platelet Count 275 140-450 10^3/uL Mean Platelet Volume 7.6 6.9-10.8 fL Neutrophils (%) (Auto) 74.1 37.0-80.0 % Lymphocytes (%) (Auto) 14.9 10.0-50.0 % Monocytes (%) (Auto) 10.5 0.0-12.0 % Eosinophils (%) (Auto) 0.2 0.0-7.0 % Basophils (%) (Auto) 0.3 0.0-2.0 % Neutrophils # (Auto) 5.4 1.6-8.6 10 ^3/uL Lymphocytes # (Auto) 1.1 0.4-5.4 10 ^3/uL Monocytes # (Auto) 0.8 0-1.3 10 ^3/uL Eosinophils # (Auto) 0 0-0.8 10 ^3/uL Basophils # (Auto) 0 0-0.2 10 ^3/uL Nucleated Red Blood Cells 0.1 % Sodium Level 133 L 136-145 mmol/L Potassium Level 3.6 3.5-5.1 mmol/L Chloride Level 101 98-107 mmol/L Carbon Dioxide Level 21 20-31 mmol/L Anion Gap 11 5-15 Blood Urea Nitrogen 15 9-23 mg/dL Creatinine 0.83 0.700-1.30 mg/dL Glomerular Filtration Rate Calc 95 >90 mL/min BUN/Creatinine Ratio 18.1 10.0-20.0 Serum Glucose 122 H 74-106 mg/dL Calcium Level 9.8 8.7-10.4 mg/dL X-Ray, Labs, Meds, VS Comment All studies performed the ED were evaluated by me personally. Laboratories were unremarkable for any systemic process. This patient's pain is unmanageable at home. Patient will be admitted for a possible MRI in the morning for continued evaluation of his significant L1 burst fracture and may require a transfer to a half-way facility for rehab and pain assistance. Time of 1ST Reevaluation: 23:35 Reevaluation 1ST: Improved Consultation: PCP Patient Education/Counseling: Diagnosis, Treatment, Prognosis Family Education/Counseling: Diagnosis, Treatment, No Family Present Departure 1 Departure Time of Disposition: 23:35 Impression: Primary Impression: Closed burst fracture of lumbar vertebra Additional Impression: Intractable back pain Disposition: ADMITTED INPATIENT Condition: Fair Discharged With: Self Critical Care Note Critical Care Time?: No Stability Stability form required: No I personally scribed for HUMERA VALDES PAC ([email or web address]) on 06/29/24 at 22:20. Electronically submitted by Francisca Hull ([facility]). HUMERA VALDES PAC Jun 29, 2024 22:20
[2024-06-29 22:42] LABS: Basophils # (auto) 0 10 ^3/uL (0-0.2); Basophils % (auto) 0.3 % (0.0-2.0); Eosinophils # (auto) 0 10 ^3/uL (0-0.8); Eosinophils % (auto) 0.2 % (0.0-7.0); Hematocrit 47.7 % (41.0-53.0); Hemoglobin 16.4 g/dL (13.5-17.5); Lymphocytes # (auto) 1.1 10 ^3/uL (0.4-5.4); Lymphocytes % (auto) 14.9 % (10.0-50.0); Mean Corpuscular Hemoglobin 30.7 pg (28.0-32.0); Mean Corpuscular Hgb Conc. 34.5 g/dL (32.0-36.0); Monocytes # (auto) 0.8 10 ^3/uL (0-1.3); Monocytes % (auto) 10.5 % (0.0-12.0); Neutrophils # (auto) 5.4 10 ^3/uL (1.6-8.6); Neutrophils % (auto) 74.1 % (37.0-80.0); Nucleated Red Blood Cells % 0.1 %; Platelet Count (auto) 275 10^3/uL (140-450); Red Blood Cells 5.36 10^6/uL (4.5-5.90); Red Cell Distribution Width 13.7 % (11.8-14.3); White Blood Cell 7.3 10^3/uL (4.4-10.8)
[2024-06-29 22:50] LABS: Chloride 101 mmol/L (98-107); Potassium 3.6 mmol/L (3.5-5.1)
[2024-06-29 22:51] LABS: Anion Gap 11 (5-15); Calcium 9.8 mg/dL (8.7-10.4); Carbon Dioxide 21 mmol/L (20-31)
[2024-06-29 22:56] LABS: BUN/Creatinine Ratio 18.1 (10.0-20.0); Blood Urea Nitrogen 15 mg/dL (9-23)
[2024-06-29 22:57] LABS: Glucose 122 mg/dL (74-106); Sodium 133 mmol/L (136-145)
[2024-06-30] VITALS (7 sets, daily range): BP systolic 118–164; BP diastolic 77–105; PULSE 78–88; RESP 16–20; TEMP 97.7–98.8; O2SAT 94–98
[2024-06-30] MEDS: HYDROmorphone HCL 2 MG/ML VL/or syr IM ONE (01:12)
--- NOTE | 2024-06-30 01:36 | DVHHPRES ---
History of Present Illness Resident Creating Document: ABY BUI RESIDENT Reason for Visit: Lower back pain History of Present Illness This is a 68-year-old male who presents to the ED with chief complain of lower back pain. He has a past medical history relevant for hypertension. He denies any smoking, alcohol or drug abuse. He has a past medical history relevant for UroLift, hernia repair, bladder mass removal. Patient states that she was hospitalized recently a couple days ago due to a fall that he had in which he tripped and fell onto his buttocks, he was unable to get himself back up without assistance. A CT was performed which revealed acute fracture of L1, patient was discharged home with gabapentin and Glady, however, he states having significant nausea and vomiting and he is unable to take any p.o. meds. Patient currently states having severe lower back pain, he stated that it burning like sensation, she 10 down from his lower back to the sides of his buttocks, he has also unable to lift up both of his legs due to significant pain, he states having numbness and tingling sensation in the lower back area. In the ED patient received Dilaudid, he will be admitted for further investigation and management. Cardiovascular: HTN Smoke: No ALCOHOL: none Drugs: None Review of Systems Constitutional: Yes: Chills; No: Fever, Sweats, Weakness, Malaise, Other Eyes: No: Pain, Vision change, Conjunctivae inflammation, Eyelid inflammation, Other, Redness ENT: No: Ear pain, Ear discharge, Nose pain, Nose discharge, Nose congestion, Mouth pain, Mouth swelling, Throat pain, Throat swelling, Other Respiratory: No: Cough, Dry, Shortness of breath, SOB with excertion, Wheezing, Hemoptysis, Pleuritic Pain, Sputum, Wheezing, Other Cardiovascular: No: Chest Pain, Palpitations, Orthopnea, Paroxysmal Noc. Dyspnea, Edema, Lt Headedness, Other Gastrointestinal: No: Nausea, Vomiting, Abdominal Pain, Diarrhea, Constipation, Melena, Hematochezia, Other Genitourinary: No Dysuria, No Frequency, No Incontinence, No Hematuria, No Retention, No Other Musculoskeletal: back pain; No: other, neck pain, shoulder pain, arm pain, hand pain, leg pain, foot pain Skin: No: Rash, Lesions, Jaundice, Bruising, Other Neurological: No: Weakness, Numbness, Incoordination, Change in speech, Confusion, Seizures, Other Allergies: Coded Allergies: NO KNOWN ALLERGIES (Unverified , 07/30/20) Medications Current Medications Medications Dose Ordered Sig/Elva Route Start Time Stop Time Status Last Admin Dose Admin Morphine Sulfate 2 mg Q4HPRN PRN IV 06/30/24 01:00 Acetaminophen/ Hydrocodone Bitart 1 tab Q4HP PRN PO 06/30/24 01:00 Ondansetron HCl 4 mg Q4HPRN PRN IV 06/30/24 01:00 Losartan Potassium 25 mg DAILY PO 06/30/24 10:00 Exam Vital Signs Vital Signs Date Time Temp Pulse Resp B/P (MAP) Pulse Ox O2 Delivery O2 Flow Rate FiO2 06/30/24 01:12 90 18 136/88 06/30/24 01:06 Room Air* 0 21 06/30/24 01:05 98.0 98 98.0 General Appearance: Alert, Oriented X3, Cooperative, mild distress HEENT: Atraumatic, PERRLA, EOMI, Mucous membr. moist/pink Respiratory: Clear to auscultation, Normal air movement Cardiovascular: Regular rate, Normal S1, Normal S2, No murmurs Abdominal: Normal bowel sounds, Soft, No tenderness, No hepatospenomegaly Extremities: No clubbing, No cyanosis, No edema, Normal pulses Skin: No rashes, No breakdown, No significant lesion Neuro: Normal speech, Strength at 5/5 X4 ext, Normal tone, Sensation intact, Cranial nerves 3-12 NL Psych/Mental Status: Mental status NL, Mood NL Labs/Xrays Labs Test 06/29/24 22:25 Range/Units White Blood Count 7.3 4.4-10.8 10^3/uL Red Blood Count 5.36 4.5-5.90 10^6/uL Hemoglobin 16.4 13.5-17.5 g/dL Hematocrit 47.7 41.0-53.0 % Mean Corpuscular Volume 89.0 80.0-100.0 fL Mean Corpuscular Hemoglobin 30.7 28.0-32.0 pg Mean Corpuscular Hemoglobin Concent 34.5 32.0-36.0 g/dL Red Cell Distribution Width 13.7 11.8-14.3 % Platelet Count 275 140-450 10^3/uL Mean Platelet Volume 7.6 6.9-10.8 fL Neutrophils (%) (Auto) 74.1 37.0-80.0 % Lymphocytes (%) (Auto) 14.9 10.0-50.0 % Monocytes (%) (Auto) 10.5 0.0-12.0 % Eosinophils (%) (Auto) 0.2 0.0-7.0 % Basophils (%) (Auto) 0.3 0.0-2.0 % Neutrophils # (Auto) 5.4 1.6-8.6 10 ^3/uL Lymphocytes # (Auto) 1.1 0.4-5.4 10 ^3/uL Monocytes # (Auto) 0.8 0-1.3 10 ^3/uL Eosinophils # (Auto) 0 0-0.8 10 ^3/uL Basophils # (Auto) 0 0-0.2 10 ^3/uL Nucleated Red Blood Cells 0.1 % Sodium Level 133 L 136-145 mmol/L Potassium Level 3.6 3.5-5.1 mmol/L Chloride Level 101 98-107 mmol/L Carbon Dioxide Level 21 20-31 mmol/L Anion Gap 11 5-15 Blood Urea Nitrogen 15 9-23 mg/dL Creatinine 0.83 0.700-1.30 mg/dL Glomerular Filtration Rate Calc 95 >90 mL/min BUN/Creatinine Ratio 18.1 10.0-20.0 Serum Glucose 122 H 74-106 mg/dL Calcium Level 9.8 8.7-10.4 mg/dL Assessment/Plan Assessment/Plan # intractable Lower back pain due to acute fracture of L1, radiculopathy Reviewed previous CT: burst fracture with 30% loss of height anteriorly and 2 mm retropulsion. Ordered MRI of lower back Pain management p.r.n. Zofran IV p.r.n. Full liquid diet Ordered head CT, RPR Admit to med surge Order a.m. labs ordered PT #Hypertension, uncontrolled #Nonadherent Losartan 25 mg p.o. q.d. Counseled on lifestyle modifications #Cannabis dependence Counseled on cessation Goals of care were discussed for 30 minutes. Full code Case was discussed with Dr. Julian Plan discussed with: Patient My Orders Orders - ABY BUI RESIDENT Procedure Category Date Status Time Admit ADMIT 06/30/24 Transmitted 00:58 Notify Of Changes MAHAD 06/30/24 In Process From Base 00:58 Complete Blood Count LAB 06/30/24 Logged 04:00 Basic Metabolic Panel LAB 06/30/24 Logged 04:00 Apply Ice To Affected MAHAD 06/30/24 In Process Area 01:00 Morphine Sulfate PHA 06/30/24 In Process Injection 01:00 Hydrocodone-Acet PHA 06/30/24 In Process 10/325mg Tab (Glady 01:00 Drug Screen LAB 06/30/24 Logged 01:[address] 06/30/24 Logged 01:00 Lumbar Spine Wo MRI 06/30/24 Logged Contrast 01:00 Full Liq Diet DIET 06/30/24 Transmitted Breakfast Ondansetron Hcl PHA 06/30/24 In Process (Zofran) 01:00 Hepatic Panel LAB 06/30/24 Logged 04:00 RPR LAB 06/30/24 Logged 04:00 Losartan Tablet PHA 06/30/24 In Process (Cozaar Tablet) 10:00 ABY BUI RESIDENT Jun 30, 2024 01:36
[2024-06-30 03:12] LABS: Basophils # (auto) 0 10 ^3/uL (0-0.2); Basophils % (auto) 0.3 % (0.0-2.0); Eosinophils # (auto) 0 10 ^3/uL (0-0.8); Eosinophils % (auto) 0.3 % (0.0-7.0); Hematocrit 46.3 % (41.0-53.0); Hemoglobin 16.1 g/dL (13.5-17.5); Lymphocytes # (auto) 1.3 10 ^3/uL (0.4-5.4); Lymphocytes % (auto) 19.9 % (10.0-50.0); Mean Corpuscular Hemoglobin 30.9 pg (28.0-32.0); Mean Corpuscular Hgb Conc. 34.7 g/dL (32.0-36.0); Mean Corpuscular Volume 89.2 fL (80.0-100.0); Monocytes # (auto) 0.8 10 ^3/uL (0-1.3); Neutrophils # (auto) 4.5 10 ^3/uL (1.6-8.6); Neutrophils % (auto) 67.5 % (37.0-80.0); Nucleated Red Blood Cells % 0.1 %; Platelet Count (auto) 281 10^3/uL (140-450); Red Blood Cells 5.19 10^6/uL (4.5-5.90); Red Cell Distribution Width 13.4 % (11.8-14.3); White Blood Cell 6.6 10^3/uL (4.4-10.8)
[2024-06-30 03:25] LABS: Chloride 101 mmol/L (98-107); Potassium 3.5 mmol/L (3.5-5.1)
[2024-06-30 03:26] LABS: Anion Gap 11 (5-15); Carbon Dioxide 22 mmol/L (20-31)
[2024-06-30 03:31] LABS: BUN/Creatinine Ratio 17.1 (10.0-20.0); Blood Urea Nitrogen 14 mg/dL (9-23)
[2024-06-30 03:39] LABS: Albumin 4.5 g/dL (3.2-4.8); Total Protein 7.3 g/dL (5.7-8.2)
[2024-06-30 03:42] LABS: Glucose 116 mg/dL (74-106); Sodium 134 mmol/L (136-145)
[2024-06-30 03:46] LABS: Bilirubin, Total 4.2 mg/dL (0.2-1.0)
[2024-06-30 04:03] LABS: Bilirubin, Direct 0.4 mg/dL (<0.3)
--- NOTE | 2024-06-30 04:16 | DVH ---
EXAM: CT HEAD WITHOUT CONTRAST HISTORY: s/p fall COMPARISON: None TECHNIQUE: Noncontrast axial CT images of the head were performed. Sagittal and coronal reformatted images were obtained. This CT exam was performed using 1 or more of the following dose reduction techniques: Au tomated exposure control, adjustment of the mA and/or kv according to patient size, or the use of ite rative reconstruction techniques. Radiation Dose : Head: CT Dose: CTDI volume is 56.36 mGy. Dose-length product is 998.01 mGy*cm FINDINGS: No intracranial hemorrhage, mass, midline shift, hydrocephalus, or evidence of acute large vessel inf arct. There is mild mucosal thickening of the left maxillary sinus. There is fluid and sclerosis in the caudal aspect of the right mastoid air cells. The left mastoid air cells and bilateral middle ear spaces are clear. No cranial fracture or scalp edema. There is a dental cavity involving the single remaining left maxillary tooth (image 38, series 602). IMPRESSION: 1. No acute intracranial process. 2. Mild left maxillary sinus disease. 3. Sclerosis of the caudal aspect of the right mastoid air cells which may be due to chronic mastoidi tis.
[2024-06-30] MEDS: ONDANSETRON HCL 4 MG/2 ML VIAL IV PRN (04:17)
[2024-06-30] MEDS: MORPHINE SULFATE INJ 2 MG/ml SYRG IV PRN (04:20)
[2024-06-30] MEDS: LOSARTAN POTASSIUM 25 MG TAB PO SCH (10:00)
--- NOTE | 2024-06-30 13:12 | DVHPN2 ---
Reviewed: Care Plan, H&P, Labs, Medications, Previous Orders, Radiology Changes from previous H/P or p: No Changes Eyes: No Pain, No Vision change, No Conjunctivae inflammation, No Eyelid inflammation, No Other, No Redness ENT: No Ear pain, No Ear discharge, No Nose pain, No Nose discharge, No Nose congestion, No Mouth pain, No Mouth swelling, No Throat pain, No Throat swelling, No Other Cardiovascular: No Chest Pain, No Palpitations, No Orthopnea, No Paroxysmal Noc. Dyspnea, No Edema, No Lt Headedness, No Other Respiratory: No Cough, No Dry, No Shortness of breath, No SOB with excertion, No Wheezing, No Hemoptysis, No Pleuritic Pain, No Sputum, No Other Gastrointestinal: No Nausea, No Vomiting, No Abdominal Pain, No Diarrhea, No Constipation, No Melena, No Hematochezia, No Other Genitourinary: No Dysuria, No Frequency, No Incontinence, No Hematuria, No Retention, No Other Musculoskeletal: No other, No neck pain, No shoulder pain, No arm pain; back pain; No hand pain, No leg pain, No foot pain Skin: No Rash, No Lesions, No Jaundice, No Bruising, No Other Objective Vitals Vital Signs Date Time Temp Pulse Resp B/P (MAP) Pulse Ox O2 Delivery O2 Flow Rate FiO2 06/30/24 11:01 72 16 130/88 06/30/24 09:00 98.5 94 98.5 06/30/24 01:06 Room Air* 0 21 Intake/Output Intake and Output 06/30/24 07:00 Intake Total 250 ml Balance 250 ml Intake Oral 250 ml # Voids 1 Medications Current Medications Medications Dose Ordered Sig/Elva Route Start Time Stop Time Status Last Admin Dose Admin Morphine Sulfate 2 mg Q4HPRN PRN IV 06/30/24 01:00 06/30/24 10:31 2 MG Acetaminophen/ Hydrocodone Bitart 1 tab Q4HP PRN PO 06/30/24 01:00 Ondansetron HCl 4 mg Q4HPRN PRN IV 06/30/24 01:00 06/30/24 10:29 4 MG Losartan Potassium 25 mg DAILY PO 06/30/24 10:00 Laboratory Results Laboratory Tests 06/30/24 02:43 Chemistry Test 06/29/24 22:25 06/30/24 02:43 Calcium Level 9.8 mg/dL (8.7-10.4) 10.0 mg/dL (8.7-10.4) Albumin 4.5 g/dL (3.2-4.8) Total Protein 7.3 g/dL (5.7-8.2) LFT Test 06/30/24 02:43 Alanine Aminotransferase (ALT) 17 U/L (7-40) Alkaline Phosphatase 99 U/L (46-116) Aspartate Amino Transferase (AST) 24 U/L (13-40) Direct Bilirubin 0.4 mg/dL (<0.3) H Total Bilirubin 4.2 mg/dL (0.2-1.0) H Labs and/or images reviewed: Labs reviewed by me, Image(s) reviewed by me Assessment/Plan Assessment/Plan Acute exacerbation of back pain: Morphine [place] Burst fracture L1 on 06/26/2024 secondary to mechanical fall: Consult for Dr. Jordan Hypertension Plan discussed with: Patient Date of Service: Jun 30, 2024 Billing Provider: MANOHAR NUGENT MD Common Visit Codes: [id number] INP/OBS CARE(HIGH) MANOHAR NUGENT MD Jun 30, 2024 13:12
--- NOTE | 2024-06-30 16:43 | DVH ---
CLINICAL INFORMATION: 68 years old, Male; L1 fracture. TECHNIQUE: Multisequence multiplanar MRI images of the lumbar spine were obtained without contrast. COMPARISON: Correlation made to CT of the abdomen and pelvis dated 06/26/2024. INTERPRETATION: Minimal retrolisthesis of L2 on L3 and L3 on L4. Acute compression fracture of the L1 vertebral body with up to 30% loss of height. There is fluid in the central aspect of the vertebra l body associated with the fracture, likely hemorrhage. No significant retropulsion of the posterior cortex. Posterior elements are intact. No other acute fracture or marrow signal abnormality identi fied. Visualized spinal cord and cauda equina are within normal limits. The conus medullaris is rafi ropriate in signal at the L1 level. Moderate fatty atrophy of the paraspinal musculature in the lumb osacral spine. Small bilateral T2 hyperintense foci in the kidneys, likely small cysts. L1-L2: No significant disc/facet abnormality. No significant spinal canal or neural foraminal stenos is. L2-L3: Disc desiccation with diffuse disc bulge mildly indenting the ventral aspect of the thecal sa c. No significant spinal canal stenosis. Facet hypertrophy with moderate left neural foraminal steno sis. L3-L4: Disc desiccation. Minimal disc bulge mildly flattening the ventral aspect of the thecal sac. Facet hypertrophy with moderate bilateral neural foraminal stenoses. L4-L5: Disc desiccation. No significant disc bulge or spinal canal stenosis. Facet hypertrophy with moderate bilateral neural foraminal stenoses, right greater than left. L5-S1: Disc desiccation. No significant spinal canal stenosis. Facet hypertrophy with [id number] te right neural foraminal stenosis. IMPRESSION: 1. Acute compression fracture of the L1 vertebral body. 2. Minimal retrolisthesis of L2 on L3 and L3 on L4. 3. Degenerative disc disease and facet disease in the lumbar spine as detailed above.
[2024-06-30] MEDS: HYDROcodone-ACET 10/325MG TAB PO PRN (18:50)
[2024-07-01 01:00] VITALS: BP 129/61; PULSE 68; RESP 16; TEMP 98.5; O2SAT 100
[2024-07-01 05:00] VITALS: BP 126/79; PULSE 70; RESP 16; TEMP 98; O2SAT 95
[2024-07-01 09:00] VITALS: BP 124/78; PULSE 63; RESP 20; TEMP 98.3; O2SAT 94
--- NOTE | 2024-07-01 12:25 | DVHPN2 ---
Reviewed: Care Plan, H&P, Labs, Medications, Previous Orders, Radiology Changes from previous H/P or p: No Changes Eyes: No Pain, No Vision change, No Conjunctivae inflammation, No Eyelid inflammation, No Other, No Redness ENT: No Ear pain, No Ear discharge, No Nose pain, No Nose discharge, No Nose congestion, No Mouth pain, No Mouth swelling, No Throat pain, No Throat swelling, No Other Cardiovascular: No Chest Pain, No Palpitations, No Orthopnea, No Paroxysmal Noc. Dyspnea, No Edema, No Lt Headedness, No Other Respiratory: No Cough, No Dry, No Shortness of breath, No SOB with excertion, No Wheezing, No Hemoptysis, No Pleuritic Pain, No Sputum, No Other Gastrointestinal: No Nausea, No Vomiting, No Abdominal Pain, No Diarrhea, No Constipation, No Melena, No Hematochezia, No Other Genitourinary: No Dysuria, No Frequency, No Incontinence, No Hematuria, No Retention, No Other Musculoskeletal: No other, No neck pain, No shoulder pain, No arm pain; back pain; No hand pain, No leg pain, No foot pain Skin: No Rash, No Lesions, No Jaundice, No Bruising, No Other Objective Vitals Vital Signs Date Time Temp Pulse Resp B/P (MAP) Pulse Ox O2 Delivery O2 Flow Rate FiO2 07/01/24 09:00 98.3 63 20 124/78 (93) 94 98.3 07/01/24 08:00 Room Air* 0 21 Intake/Output Intake and Output 07/01/24 07:00 Intake Total 940 ml Balance 940 ml Intake Oral 940 ml # Voids 3 Medications Current Medications Medications Dose Ordered Sig/Elva Route Start Time Stop Time Status Last Admin Dose Admin Morphine Sulfate 2 mg Q4HPRN PRN IV 06/30/24 01:00 06/30/24 10:31 2 MG Acetaminophen/ Hydrocodone Bitart 1 tab Q4HP PRN PO 06/30/24 01:00 07/01/24 06:25 1 TAB Ondansetron HCl 4 mg Q4HPRN PRN IV 06/30/24 01:00 06/30/24 18:50 4 MG Losartan Potassium 25 mg DAILY PO 06/30/24 10:00 Laboratory Results Laboratory Tests 06/30/24 02:43 Labs and/or images reviewed: Labs reviewed by me, Image(s) reviewed by me Assessment/Plan Assessment/Plan Acute exacerbation of back pain: Morphine [place] Burst fracture L1 on 06/26/2024 secondary to mechanical fall: Follow up with Dr. Jordan as an outpatient Hypertension Plan discussed with: Patient My Orders Orders - MANOHAR NUGENT MD Procedure Category Date Status Time * Orthopedic Consult CONS 06/30/24 Transmitted 13:12 Date of Service: Jul 01, 2024 Billing Provider: MANOHAR NUGENT MD Common Visit Codes: [id number] INP/OBS CARE(HIGH) MANOHAR NUGENT MD Jul 01, 2024 12:25
[2024-07-01] MEDS ORDERED: METH-1181 PO (12:29)
--- NOTE | 2024-07-01 12:35 | DVHDS2 ---
Discharge Summary Date of Admission Jun 30, 2024 at 00:58 Date of Discharge: Jul 01, 2024 Admitting Diagnosis Exacerbation chronic back pain Wounds: None Labs/Diagnostic Data: Laboratory Results Test 06/30/24 02:43 White Blood Count 6.6 10^3/uL (4.4-10.8) Red Blood Count 5.19 10^6/uL (4.5-5.90) Hemoglobin 16.1 g/dL (13.5-17.5) Hematocrit 46.3 % (41.0-53.0) Mean Corpuscular Volume 89.2 fL (80.0-100.0) Mean Corpuscular Hemoglobin 30.9 pg (28.0-32.0) Mean Corpuscular Hemoglobin Concent 34.7 g/dL (32.0-36.0) Red Cell Distribution Width 13.4 % (11.8-14.3) Platelet Count 281 10^3/uL (140-450) Mean Platelet Volume 7.8 fL (6.9-10.8) Neutrophils (%) (Auto) 67.5 % (37.0-80.0) Lymphocytes (%) (Auto) 19.9 % (10.0-50.0) Monocytes (%) (Auto) 12.0 % (0.0-12.0) Eosinophils (%) (Auto) 0.3 % (0.0-7.0) Basophils (%) (Auto) 0.3 % (0.0-2.0) Neutrophils # (Auto) 4.5 10 ^3/uL (1.6-8.6) Lymphocytes # (Auto) 1.3 10 ^3/uL (0.4-5.4) Monocytes # (Auto) 0.8 10 ^3/uL (0-1.3) Eosinophils # (Auto) 0 10 ^3/uL (0-0.8) Basophils # (Auto) 0 10 ^3/uL (0-0.2) Nucleated Red Blood Cells 0.1 % Sodium Level 134 mmol/L (136-145) Potassium Level 3.5 mmol/L (3.5-5.1) Chloride Level 101 mmol/L (98-107) Carbon Dioxide Level 22 mmol/L (20-31) Anion Gap 11 (5-15) Blood Urea Nitrogen 14 mg/dL (9-23) Creatinine 0.82 mg/dL (0.700-1.30) Glomerular Filtration Rate Calc 96 mL/min (>90) BUN/Creatinine Ratio 17.1 (10.0-20.0) Serum Glucose 116 mg/dL (74-106) Calcium Level 10.0 mg/dL (8.7-10.4) Total Bilirubin 4.2 mg/dL (0.2-1.0) Direct Bilirubin 0.4 mg/dL (<0.3) Aspartate Amino Transferase (AST) 24 U/L (13-40) Alanine Aminotransferase (ALT) 17 U/L (7-40) Alkaline Phosphatase 99 U/L (46-116) Total Protein 7.3 g/dL (5.7-8.2) Albumin 4.5 g/dL (3.2-4.8) Other Laboratory Tests 06/30/24 02:43 Brief Hx & Hospital Course: 68 yr old male came in for exacerbation of chronic back pain. patient takes Na[place] [address] L-spine showed burst fracture L1 on 06/26/2024 secondary to mechanical fall. MRI L-spine showed acute L1 fracture with 30 percent loss of height. Patient was treated with the pain medications and muscle relaxant. At the time of discharge patient is ambulating with less pain and requesting to be discharged home. Patient will continue Naoma prescription for Robaxin transmitted to the pharmacy. He was advised to call spine surgeon Dr. Jordan and follow up as an outpatient through his primary Dr Dr. Lopez. No neurological deficits. Consults/Reason for consult None Operations or Procedures MRI spine Condition at Discharge: Fair Final Diagnosis/Problems List Acute exacerbation of back pain: Morphine [place] Burst fracture L1 on 06/26/2024 secondary to mechanical fall: Follow up with Dr. Jordan as an outpatient Hypertension Discharge Disposition: Home Discharge Instruct/Medications Diet: Regular Activity: Light activity Follow Up/Referral: Follow up with the your primary Dr Dr Lopez in one week Follow up with the spine surgeon Dr. Jordan in two weeks Medications: Robaxin Transmitted to pharmacy Patient has Naoma 10 at home 35 (Time taken for discharge summary 35 minutes) Discharge Statement: "Patient was advised to return to the ER or call 911 if any headaches, dizziness, shortness of breath, chest pain, abdominal pain, bleeding, fevers, or worsening of medical condition. Patient was counseled about treatment plan, medications, possible side effects, patientverbalized understanding. All questions were answered to the best of my ability. This discharge took greater then 30 minutes in planning, reviewing documentation, counseling the patient, and discussing with other team members." ASSESSMENT ASSESSMENT Hospital Course Uneventful Assessment Acute exacerbation of back pain: Morphine [place] Burst fracture L1 on 06/26/2024 secondary to mechanical fall: Follow up with Dr. Jordan as an outpatient Hypertension Date of Service: Jul 01, 2024 Billing Provider: MANOHAR NUGENT MD Common Visit Codes: [id number] DISCH DAY >30min MANOHAR NUGENT MD Jul 01, 2024 12:35
[2024-07-01 13:00] VITALS: BP 118/78; PULSE 70; RESP 20; TEMP 98.4; O2SAT 93
[2024-07-01 14:56] VITALS: BP 118/78; PULSE 70; RESP 20; TEMP 98.4; O2SAT 97
[2024-07-03 04:06] LABS: RPR Non Reactive (Non Reactive)
== END 2024-07-01 16:40 | disposition home or self-care (01) | DRG 552 ==
LOC: ER 21:46 → OVERFLOW 06-30 00:58 → WEST WING 06-30 13:31
PROVIDERS: ADMIT Student in an Organized Health Care Education/Training Program; ATTEND Internal Medicine
DX: S32.011A Stable burst fracture of first lumbar vertebra, initial encounter for closed fracture (principal); I10 Essential (primary) hypertension; G89.29 Other chronic pain; F12.20 Cannabis dependence, uncomplicated; W01.0XXA Fall on same level from slipping, tripping and stumbling without subsequent striking against object, initial encounter; Y93.89 Activity, other specified; Y92.89 Other specified places as the place of occurrence of the external cause; Y99.8 Other external cause status; M54.16 Radiculopathy, lumbar region
CPT/HCPCS: 36415; 70450; 72148; 80048; 80076; 85025; 86592; 97110; 97116; 97163; 97530; G0378; J2405

== ENCOUNTER → 2024-08-27 | Outpatient (CLI) | payer MEDICARE, MEDICAID ==
[~2024-08-27] MED LIST changes: +METH-1181 PO
--- NOTE | 2024-08-27 14:17 | DVHSR ---
APPROVED REPORT EXAM: Two-dimensional and M-mode echocardiogram with Doppler and color Doppler. DIMENSIONS LVDd3.8 (3.8-5.7cm)LA (2D)4.1 (1.9-4.0cm)Aortic Root3.7 (2.0-3.7cm) LVDs2.4 (2.5-4.0cm)LA (MM) (1.9-4.0cm)Aortic Cusp Exc1.8 (1.5-2.0cm) EF (%) 65.6 (55-70%)Rt. Atrium4.6 (1.9-4.0cm)Asc. Aorta cm IVSd1.0 (0.7-1.1cm)RV (D)3.9 (1.8-2.4cm) PWd1.0 (0.7-1.1cm) Mitral Valve MitralMitral Stenosis E wave0.82m/sMV Mean GR.mmHg A wave0.99m/sMV Peak GR.mmHg E/A ratio0.82D MVAcm2 DECEL [id number] 1/2 Tim[place] Aortic Valve Aortic ValveAortic Stenosis V11.09m/Hina Mean GR.4mmHg V21.50m/Hina Peak GR.9mmHg Pulmonic Valve V20.66m/s Tricuspid Valve [id number] LEFT VENTRICLE The Ejection Fraction is >55%. ATRIA The left atrium is mildly dilated. The right atrium is mildly dilated. MITRAL VALVE The mitral valve is normal in structure and function. There is no mitral valve regurgitation noted. PULMONIC VALVE The pulmonic valve is not well visualized. TRICUSPID VALVE The tricuspid valve is grossly normal. AORTIC VALVE The aortic valve is mildlysclerotic. No aortic regurgitation is present. GREAT VESSELS The aortic root is normal size. PERICARDIAL EFFUSION There is no pericardial effusion. Conclusion EF >55% LAE JACKELYN
== END | disposition home or self-care (01) ==
LOC: Rad HDHVI 08:13
PROVIDERS: ATTEND Internal Medicine Cardiovascular Disease
DX: I35.8 Other nonrheumatic aortic valve disorders (principal); I11.9 Hypertensive heart disease without heart failure; F43.9 Reaction to severe stress, unspecified
CPT/HCPCS: 93306

== ENCOUNTER → 2024-08-27 | Outpatient (CLI) | payer MEDICARE, MEDICAID ==
[2024-08-27 07:15] LABS: Aspartate Aminotransferase 15 U/L (13-40)
[2024-08-27 07:16] LABS: Albumin 4.9 g/dL (3.2-4.8); Bilirubin, Total 2.5 mg/dL (0.2-1.0)
[2024-08-27 07:17] LABS: Alanine Aminotransferase 16 U/L (7-40); Alkaline Phosphatase 126 U/L (46-116); Anion Gap 7 (5-15); BUN/Creatinine Ratio 16.5 (10.0-20.0); Blood Urea Nitrogen 16 mg/dL (9-23); Carbon Dioxide 28 mmol/L (20-31); Chloride 107 mmol/L (98-107); Glucose 109 mg/dL (74-106); Sodium 142 mmol/L (136-145); Total Protein 7.6 g/dL (5.7-8.2)
[2024-08-27 07:27] LABS: Creatinine, Urine 128.59 mg/dL (30.0-125.0); Triglycerides 92 mg/dL (< 150)
[2024-08-27 07:29] LABS: HDL Cholesterol 52 mg/dL (40-59)
[2024-08-27 07:39] LABS: Cholesterol 215 mg/dL (< 200); LDL Cholesterol 153 mg/dL (< 100)
[2024-08-28 08:07] LABS: Prostate Specific Antigen 5.5 ng/mL (0.0-4.0)
[2024-08-28 09:07] LABS: PSA Free 0.84 ng/mL
== END | disposition home or self-care (01) ==
LOC: LAB 06:06
PROVIDERS: ATTEND Internal Medicine
DX: I10 Essential (primary) hypertension (principal); E78.5 Hyperlipidemia, unspecified; R73.03 Prediabetes; Z79.899 Other long term (current) drug therapy
CPT/HCPCS: 36415; 80053; 80061; 82043; 82570; 83036; 84153; 84154; 84443

== ENCOUNTER 2024-12-25 07:34 | Outpatient (CLI) | payer MEDICARE, MEDICAID ==
[2024-12-25 08:08] LABS: Triglycerides 76 mg/dL (< 150)
[2024-12-25 08:10] LABS: Cholesterol 186 mg/dL (< 200); HDL Cholesterol 52 mg/dL (40-59)
== END 2024-12-25 17:00 | disposition home or self-care (01) ==
LOC: LAB 07:34
PROVIDERS: ATTEND Internal Medicine
DX: I10 Essential (primary) hypertension (principal); E78.5 Hyperlipidemia, unspecified; R73.03 Prediabetes
CPT/HCPCS: 36415; 80061; 83036

== ENCOUNTER 2025-02-27 08:04 | Outpatient (CLI) | payer MEDICARE, MEDICAID | END 2025-02-27 17:00 | disposition home or self-care (01) | LOC: Rad HDHVI 08:04 | PROVIDERS: ATTEND Internal Medicine Cardiovascular Disease | DX: I65.21 Occlusion and stenosis of right carotid artery (principal); I10 Essential (primary) hypertension; E78.5 Hyperlipidemia, unspecified | CPT/HCPCS: 93880 ==